=== PATIENT | male | born 1965 | race Caucasian/White ===

== ENCOUNTER 2020-07-10 21:27 | Emergency (ER) | payer MEDICAID, OTHER ==
[~2020-07-10] VITALS: Ht 172.7 cm; Wt 82.1 kg
--- NOTE | 2020-07-10 21:40 | NUR ---
TO ER BED 12 BIB EMS C/O AGITATION, ALTERED. BYSTANDER CALL 911 DUE TO PT LAYING ON THE FLOOR. PT DISHEVELED. RECEIVED PT AAOX2, NO ACUTE DISTRESS NOTED, RESP EVEN AND UNLABORED. NOTED PT WITH PIN POINT PUPILS. PLACE PT ON CARDIAC MONITORING, CONTINUOUS POX. SKIN WARM NONDIAPHORETIC. NO OBVIOUS TRAUMA NOTED. PENDING ER MD LIRIANO.
--- NOTE | 2020-07-10 21:42 | NUR ---
ER MD AT BEDSIDE TO EVAL PT. PT BECAME COMBATIVE AND STARTED SWINGING AT THE ER MD. PT VERBALLY ABUSIVE, UNCOOPERATIVE. ORDERS RECEIVED. FROM ER MD. WILL CARRY OUT ORDERS.
[2020-07-10 22:02] LABS: BASOPHILS % (AUTO) 0.6 % (0.0-2.0); EOSINOPHILS % (AUTO) 2.5 % (0.0-6.0); HEMATOCRIT 39 % (39-51); HEMOGLOBIN 13.2 g/dL (13.5-17.5); LYMPHOCYTES # (AUTO) 2.1 /CMM (0.8-4.8); MEAN CORPUSCULAR HGB CONC 34 g/dl (31.0-36.0); MEAN CORPUSCULAR VOLUME 91 fL (80-96); MONOCYTES # (AUTO) 0.6 /CMM (0.1-1.30); MONOCYTES % (AUTO) 8.2 % (2.0-12.0); NEUTROPHILS # (AUTO) 4.3 /CMM (1.8-8.9); NEUTROPHILS % (AUTO) 59.7 % (43.0-81.0); PLATELET COUNT (AUTO) 260 /CMM (150-450); RED BLOOD CELL COUNT(AUTO) 4.33 MIL/uL (4.5-6.0); WHITE BLOOD COUNT (AUTO) 7.1 K/uL (4.3-11.0)
[2020-07-10 22:15] LABS: CALCIUM, SERUM 8.7 mg/dL (8.5-10.1); CARBON DIOXIDE 31 mmol/L (21-32); CHLORIDE 106 mmol/L (98-107); CREATININE 0.9 mg/dL (0.6-1.3); GLUCOSE 89 mg/dL (74-106); POTASSIUM 3.9 mmol/L (3.5-5.1); SODIUM SERUM 144 mmol/L (136-145); UREA NITROGEN, BLOOD 21 mg/dL (7-18)
[2020-07-10 22:21] LABS: ALANINE AMINOTRANSFERASE 23 U/L (12-78); ALBUMIN 3.7 g/dL (3.4-5.0); ALKALINE PHOSPHATASE 78 U/L (46-116); ASPARTATE AMINOTRANSFERASE 21 U/L (15-37); BILIRUBIN,DIRECT 0.1 mg/dL (0.0-0.2); BILIRUBIN,TOTAL 0.3 mg/dL (0.2-1.0); TOTAL PROTEIN, SERUM 7.3 g/dL (6.4-8.2)
[2020-07-10 22:25] LABS: ALCOHOL, BLOOD < 3 mg/dL (0-0)
[2020-07-10] MEDS ORDERED: diphenhydrAMINE HCL 50 MG/ML VIAL ONE (22:43)
[2020-07-10] MEDS ORDERED: OLANZAPINE 10 MG VIAL IM ONE ×2 (22:43→23:00)
[2020-07-10] MEDS ORDERED: LORAZEPAM INJ 2 MG/ML VIAL ONE (22:45)
--- NOTE | 2020-07-10 22:46 | NUR ---
TACO PARRY AT [facility] TO MEDICATE PT. PT REMAINS UNCOOPERATIVE AND VERBALLY ABUSIVE. 1:1 SITTER PLACED FOR PT SAFETY.
[2020-07-10] MEDS ORDERED: HYDROCODONE/APAP 5/325MG TABLET PO ONE (23:00)
[2020-07-10] MEDS ORDERED: LORAZEPAM INJ 2 MG/ML VIAL IM ONE (23:00)
[2020-07-10] MEDS ORDERED: diphenhydrAMINE HCL 50 MG/ML VIAL IM ONE (23:00)
[2020-07-10] MEDS ORDERED: NALOXONE PREFILLED SYRINGE 2 MG/2 ML SYRINGE ONE (23:10)
[2020-07-10] MEDS ORDERED: NALOXONE HCL 0.4 MG/ML AMPUL IV ONE (23:30)
--- NOTE | 2020-07-11 00:36 | NUR ---
PT ASLEEP, NO ACUTE DISTRESS NOTED, RESP EVEN AND UNLABORED. PT REMAINS ON CARDIAC MONITORING, COTNINUOUS POX. CALL LIGHT WITHIN REACH. 1:1 SITTER REMAINS AT BEDSIDE FOR PT SAFETY.
[2020-07-11 02:56] LABS: BILIRUBIN,URINE NEGATIVE (NEGATIVE); COLOR,URINE YELLOW (YELLOW); LEUKOCYTE ESTERASE ,URINE NEGATIVE (NEGATIVE); NITRITE, URINE NEGATIVE (NEGATIVE); PH,URINE 6.5 (5.0-8.0); PROTEIN,URINE NEGATIVE (NEGATIVE); UGLUCOSE NEGATIVE (NEGATIVE); UROBILINOGEN,URINE 0.2 EU/dL (0.2)
--- NOTE | 2020-07-11 04:06 | NUR ---
PT REMAINS ASLEEP, NO ACUTE DISTRESS NTOED, RESP EVEN AND UNLABORED. CALL LIGHT WITHIN REACH. WILL CONTINUE TO MONITOR PT CLOSELY.
--- NOTE | 2020-07-11 05:39 | NUR ---
PT REMAINS ASLEEP, NO ACUTE DISTRESS NTOED, RESP EVEN AND UNLABORED. CALL LIGHT WITHIN REACH. WILL CONTINUE TO MONITOR PT CLOSELY.
--- NOTE | 2020-07-11 09:11 | NUR ---
PT SLEEPING, AROUSABLE. ON MONITOR W/ STABLE VITALS. WILL CONTINUE TO MONITOR.
--- NOTE | 2020-07-11 10:19 | NUR ---
Echocardiologist note: check services clerk requested for behavioral health and substance use. SW attempted to interview the patient but patient was lethargic. SW was unable to arouse the patient and will follow up at a later time.
--- NOTE | 2020-07-11 14:52 | NUR ---
CARI AROUSABLE, DEMETRI KATE AT BEDSIDE TALKING TO PATIENT.
--- NOTE | 2020-07-11 16:05 | NUR ---
PT AMBULATED ON STEAQDY GAIT WITH OUT TO THE BATHROOM AND ATE LUNCH.
--- NOTE | 2020-07-11 16:14 | NUR ---
"Social Service Consult: office services coordinator consult requested for substance use and homelessness. Patient is a 55-year-old, male. SW met with the patient at his hospital bed in the emergency department. Patient is alert and oriented x4, standing up next to this hospital bed. Patient engaged in conversation with this SW, however patient speech was at times slow, and he was observed to be closing his eyes from time to time. Per patients chart, patient was brought by EMS on 07/10/2020 for agitation and altered behavior. Patient is currently homeless and stated that he was previously staying at [facility] in [place]. Patient stated that he has no source of social support, but is independent with his ADLs. Patient receives [employer] [place] and stated that his SSI is pending. SW asked patient about his history of substance use and patient stated that he has a history of substance use but was unable to provide this SW with more details due to patients lethargy. Per toxicology report, patient is positive for benzodiazepine, opiates, and cannabis. SW assessed patients history of mental illness and patient stated that he has a history of AMARIS and PTSD. Patient is not taking any psychotropic medication at this time. Patient denies any current history of suicide or homicide. SW discussed discharge plan with the patient and patient stated he plans to return to his prior living arrangements. Transportation was discussed, and patient said he is able to take the bus and does not need additional transportation resources. SW discussed homeless resources with the patient and offered a homeless resources packet to the patient. Patient thanked this SW and accepted these resources. Patient signed homeless waiver and SW placed waiver in the patients chart. Year-round shelters: [facility] [address] [place] [address] ; [facility] [address] [place] [address]; [facility] [address] [facility] [address] SPA 4 | [facility] Provider: [facility] to Serve Address: [address], [address] # of Beds: 48 Population Served: [facility] Provider: First to Serve Address: [address] [facility] # of Beds: 73 Population Served: [facility] SPA 6 | [facility] Provider: [facility] Last Address: [address] [facility] [facility], [address] # of Beds: 63 Population Served: [facility] 3 | [facility] Provider: [facility] [place] Address: [address] [facility], [address] # of Beds: 75 Population Served: [facility] SPA 8 | [facility] Provider: [facility] [place] Address: [address] [facility], [address] # of Beds: 80 Population Served: [facility] | [facility] Provider: [facility] [place] Address: [address] [place] [address], [address] # of Beds: 85 Population Served: [facility] 2 | [facility] Provider: Kira [facility] Address: Confidential (please call for location) # of Beds: 52 Population Served: [facility] 4 | [facility] Provider: [facility] Address: [address] [facility] [place], [address] # of Beds: 49 Population Served: [facility] Provider: First To Serve Address: [address] [place] [address], [address] # of Beds: 27 Population Served: [facility] Hygiene: [facility]: [address] [address] [place] [place] ; [facility] [address] [facility] ; [facility] [address] . Food Resources: [facility]- [address] [facility]; Meet Each Need with [facility]ign[facility] ([facility]) [address] [facility]; [facility] [address] [facility]; [facility] [address] Em[address] Katharine Bills. Mental Health resources provided: [facility] [address] [place], [place] [address] ; [facility] [address] [facility] [address], [place] [address] ; [facility] [address] [facility] [place], [place] [id number] ; [facility] [address] [place], [place] [address] Healthcare Clinics: [facility] [address] [facility], [address] [place]. [place] ; [facility] [address] [facility] [address] [place] [address]; [facility] [address] [facility]. [place] [id number] [phone] Counseling--Outpatient [facility] [address] [facility], [address] [place], [place] [id number] (Specializes in in-depth psychotherapy for emotional distress: anxiety, depression, interpersonal conflicts, life transitions, childhood abuse) PSYCHIATRIC OUTPATIENT SERVICES [facility] Partial Hospitalization and Intensive Outpatient Program (Managed Care and [place] Only) [address] [facility]. [facility] [id number] [facility] Partial Hospitalization and Outpatient Program [address] [facility]. [address] [place], [place] [id number] [facility] Partial Hospitalization and Outpatient Program [address] [facility] [place], [place] [id number] [facility] [address] [facility]. [address] [place], [place] [address] [facility] Partial Hospitalization and Outpatient Program [address] [place], [place] [phone] PLAN: Patient will return to prior living arrangements at the time of discharge. No further SS interventions needed at this time however, SW will follow-up as needed."
--- NOTE | 2020-07-11 16:32 | NUR ---
Patient discharged to home in stable condition. Written and verbal after care instructions given. Patient verbalizes understanding of instruction. Pt ambulatory with a steady gait IV removed. Catheter intact and site benign. Pressure and 4x4 applied to site. No bleeding noted. homeless waiver signed by the patient
[2020-07-11 16:52] VITALS: BP 117/72
[2020-07-12] MEDS ORDERED: FLUO40CA8 PO (08:29)
[2020-07-12] MEDS ORDERED: AMPH15TA2 PO (08:29)
[2020-07-12] MEDS ORDERED: MORP100T4 PO (08:29)
[2020-07-12] MEDS ORDERED: OXYC30TA2 PO (08:29)
[2020-07-12] MEDS ORDERED: CLON2TAB11 PO (08:29)
[2020-07-12] MEDS ORDERED: LEVO500T90 PO (08:56)
== END 2020-07-11 16:53 | disposition home or self-care (01) ==
LOC: ER 21:29
DX: F19.10 Other psychoactive substance abuse, uncomplicated (principal); Z98.890 Other specified postprocedural states
CPT/HCPCS: 36415; 80048; 80076; 80299; 80307; 80320; 81003; 85025; 93971; 96372 ×2; 96374; 99285; J1200; J2060; J2310; J3490; G0480

== ENCOUNTER 2020-07-11 20:38 | Inpatient (IN) | payer MEDICAID ==
[~2020-07-11] VITALS: Ht 172.7 cm; Wt 66.2 kg
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
--- NOTE | 2020-07-11 21:04 | NUR ---
PT TO CT VIA MAITE
--- NOTE | 2020-07-11 21:17 | NUR ---
back from ct
[2020-07-11] MEDS ORDERED: PIPERACILLIN /TAZOBACTAM 3.375 G in IV D5W 50 ML IV ONE (22:00)
[2020-07-11] MEDS ORDERED: NALOXONE HCL 0.4 MG/ML AMPUL IV ONE (22:00)
[2020-07-11] MEDS ORDERED: VANCOMYCIN 1 GM in IV D5W 250 ML IV ONE (22:00)
[2020-07-11 22:01] LABS: BASOPHILS % (AUTO) 0.3 % (0.0-2.0); EOSINOPHILS % (AUTO) 1.4 % (0.0-6.0); HEMATOCRIT 31 % (39-51); HEMOGLOBIN 9.6 g/dL (13.5-17.5); LYMPHOCYTES # (AUTO) 1.3 /CMM (0.8-4.8); LYMPHOCYTES % (AUTO) 7.5 % (20.0-44.0); MEAN CORPUSCULAR HGB CONC 31 g/dl (31.0-36.0); MEAN CORPUSCULAR VOLUME 75 fL (80-96); MONOCYTES # (AUTO) 1.1 /CMM (0.1-1.30); MONOCYTES % (AUTO) 6.6 % (2.0-12.0); NEUTROPHILS # (AUTO) 14.5 /CMM (1.8-8.9); NEUTROPHILS % (AUTO) 84.2 % (43.0-81.0); PLATELET COUNT (AUTO) 343 /CMM (150-450); RED BLOOD CELL COUNT(AUTO) 4.14 MIL/uL (4.5-6.0); WHITE BLOOD COUNT (AUTO) 17.2 K/uL (4.3-11.0)
[2020-07-11] MEDS ORDERED: VANCOMYCIN 1 GM VIAL ONE (22:07)
[2020-07-11] MEDS ORDERED: PIPERACILLIN /TAZOBACTAM 3.375 G VIAL IV ONE (22:07)
[2020-07-11 22:30] LABS: BASOPHILS # (AUTO) 0.1 /CMM (0.0-0.2); BASOPHILS % (AUTO) 0.4 % (0.0-2.0); EOSINOPHILS % (AUTO) 0.5 % (0.0-6.0); HEMATOCRIT 42 % (39-51); HEMOGLOBIN 13.8 g/dL (13.5-17.5); LYMPHOCYTES # (AUTO) 1.2 /CMM (0.8-4.8); MEAN CORPUSCULAR HGB CONC 33 g/dl (31.0-36.0); MEAN CORPUSCULAR VOLUME 91 fL (80-96); MONOCYTES # (AUTO) 0.9 /CMM (0.1-1.30); MONOCYTES % (AUTO) 6.7 % (2.0-12.0); NEUTROPHILS # (AUTO) 11.3 /CMM (1.8-8.9); NEUTROPHILS % (AUTO) 83.4 % (43.0-81.0); PLATELET COUNT (AUTO) 273 /CMM (150-450); WHITE BLOOD COUNT (AUTO) 13.6 K/uL (4.3-11.0)
[2020-07-11] MEDS ORDERED: IV NS 0.9% 1,000 ML BAG IV ONE (22:30)
[2020-07-11 22:37] LABS: CREATININE 0.8 mg/dL (0.6-1.3); POTASSIUM 3.7 mmol/L (3.5-5.1)
[2020-07-11 22:41] LABS: CALCIUM, SERUM 8.4 mg/dL (8.5-10.1)
--- NOTE | 2020-07-12 00:35 | NUR ---
RESTING COMFORTABLY. VSS.
--- NOTE | 2020-07-12 02:57 | NUR ---
PT TRANSFERED. REPORT GIVEN TO RN FOR EM.
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
[2020-07-12] MEDS ORDERED: HYDROCODONE/APAP 5/325MG TABLET PO PRN (03:30)
[2020-07-12] MEDS ORDERED: ACETAMINOPHEN 650 MG/20.3 ML UDC NG PRN (03:30)
[2020-07-12] MEDS ORDERED: ONDANSETRON HCL/PF 4 MG/2 ML VIAL IV PRN (03:30)
[2020-07-12 04:00] VITALS: BP 94/57
[2020-07-12] MEDS ORDERED: PIPERACILLIN /TAZOBACTAM 3.375 G in IV D5W 50 ML IV SCH (05:00)
[2020-07-12] MEDS ORDERED: ZOSYN IVPB 3.375 G in IV D5W 50ml IV SCH (05:00)
[2020-07-12] MEDS ORDERED: PIPERACILLIN /TAZOBACTAM 3.375 G VIAL IV ONE (05:32)
[2020-07-12 06:09] LABS: BASOPHILS % (AUTO) 0.3 % (0.0-2.0); EOSINOPHILS % (AUTO) 2.1 % (0.0-6.0); HEMATOCRIT 34 % (39-51); HEMOGLOBIN 11.7 g/dL (13.5-17.5); LYMPHOCYTES # (AUTO) 1.7 /CMM (0.8-4.8); LYMPHOCYTES % (AUTO) 18.7 % (20.0-44.0); MEAN CORPUSCULAR HGB CONC 34 g/dl (31.0-36.0); MEAN CORPUSCULAR VOLUME 92 fL (80-96); MONOCYTES # (AUTO) 0.6 /CMM (0.1-1.30); MONOCYTES % (AUTO) 6.7 % (2.0-12.0); NEUTROPHILS # (AUTO) 6.7 /CMM (1.8-8.9); NEUTROPHILS % (AUTO) 72.2 % (43.0-81.0); PLATELET COUNT (AUTO) 237 /CMM (150-450); RED BLOOD CELL COUNT(AUTO) 3.73 MIL/uL (4.5-6.0); WHITE BLOOD COUNT (AUTO) 9.2 K/uL (4.3-11.0)
[2020-07-12 06:21] LABS: CALCIUM, SERUM 7.6 mg/dL (8.5-10.1); CREATININE 0.6 mg/dL (0.6-1.3); POTASSIUM 3.3 mmol/L (3.5-5.1)
--- NOTE | 2020-07-12 07:14 | NUR ---
RN NOTE PATIENT IS RESTING IN BED. ALERT AND ORIENTED X4. ON ROOM AIR, O2 SAT 100%. NO SOB OR ANY RESPIRATORY DISTRESS. KEPT CLEAN AND DRY. WITH IV ON RIGHT AC #20 PATENT AND FLUSHED ASEPTICALLY. SAFETY MEASURES IMPLEMENTED. BED LOCKED AND IN LOWEST POSITION. SIDE RAILS UP X2. CALL LIGHT WITHIN REACH. WILL ENDORSE TO AM SHIFT.
--- NOTE | 2020-07-12 07:43 | NUR ---
Patient complains of dizziness. Says history of diabetes. Denies hypertension, chest pain, blurry vision. Says it feels like the room is spinning. Denies history of having a CT or any other sequalae. Says has had two or three concussions in the last six months. Pupils are three plus equal reactive to light accommodation. Has alertness and orientation x4. Denies history of previous dizziness. Suggestion to possibly eat breakfast to see if this may be related to hunger. Costa Hartman RN
[2020-07-12] MEDS ORDERED: FLUO40CA8 PO (08:29)
[2020-07-12] MEDS ORDERED: OXYC30TA2 PO (08:29)
[2020-07-12] MEDS ORDERED: MORP100T4 PO (08:29)
[2020-07-12] MEDS ORDERED: CLON2TAB11 PO (08:29)
[2020-07-12] MEDS ORDERED: AMPH15TA2 PO (08:29)
[2020-07-12] MEDS ORDERED: POTASSIUM CHLORIDE 20 MEQ TAB.PRT.SR PO ONE (08:30)
--- NOTE | 2020-07-12 08:48 | NUR ---
Patient says dizziness is still present. He notes numbness in bilateral lower legs, right side headache pain as well as right hip and back pain. Costa Hartman RN
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
[2020-07-12] MEDS ORDERED: LEVO500T90 PO (08:56)
[2020-07-12] MEDS ORDERED: PIPERACILLIN /TAZOBACTAM 3.375 G in IV D5W 100 ML IV SCH (10:00)
--- NOTE | 2020-07-12 10:16 | NUR ---
Patient discharge to home with all belongings and a copy of exit care instruction, prescription (levaquin), and follow up care. Patient verbalizes understanding of prescription and follow up. Says he will go by pharmacy prior to going to longterm. Costa Hartman RN
--- NOTE | 2020-07-12 12:57 | NUR ---
SS consult requested for homelessness & substance use. SS consult completed by other SW in ED on 07/11/2020. See other account for details. Patient has already been discharged at this time.
== END 2020-07-12 10:13 | disposition home or self-care (01) | DRG 139 ==
LOC: ER 20:39 → TELE1 07-12 02:07 → MEDSG1 07-12 03:36
PROVIDERS: ADMIT Internal Medicine; ATTEND Internal Medicine
DX: J15.9 Unspecified bacterial pneumonia (principal); F19.10 Other psychoactive substance abuse, uncomplicated; G89.29 Other chronic pain; W18.30XA Fall on same level, unspecified, initial encounter; Y93.89 Activity, other specified; Y92.238 Other place in hospital as the place of occurrence of the external cause; J98.11 Atelectasis; Z59.0 Homelessness; Z79.891 Long term (current) use of opiate analgesic; Z20.822 Contact with and (suspected) exposure to COVID-19
CPT/HCPCS: 36410; 36415; 70450-TC; 71250-TC; 72125-TC; 80048-TC; 82962-TC; 83880; 84484-TC; 85025-TC; 87040-TC; 87081-TC; C9803; G0378; J2543; J3370; J7030; J7040; J7050; J7060

== ENCOUNTER 2021-09-03 00:21 | Emergency (ER) | payer MEDICAID, OTHER ==
[~2021-09-03] VITALS: Ht 172.7 cm; Wt 72.6 kg
[~2021-09-03 00:21] MED LIST: AMPH15TA2 PO; CLON2TAB11 PO; FLUO40CA8 PO; LEVO500T90 PO; MORP100T4 PO; OXYC30TA2 PO
--- NOTE | 2021-09-03 00:24 | NUR ---
Jose L roberson in [facility] - 09/03/21 at 0127 by KATHLEEN VIVIAN scott [phone]
[2021-09-03] MEDS ORDERED: oxyCODONE/APAP (5/325 MG) 1 UDTAB TABLET PO ONE (01:30)
[2021-09-03] MEDS ORDERED: OXYC-133 PO (01:32)
[2021-09-03 01:33] VITALS: BP 98/56
[2021-09-03] MEDS ORDERED: oxyCODONE/APAP (5/325 MG) 1 UDTAB TABLET ONE (01:33)
--- NOTE | 2021-09-03 01:33 | NUR ---
Patient discharged to home in stable condition. Written and verbal after care instructions given. Patient verbalizes understanding of instruction.
== END 2021-09-03 01:35 | disposition home or self-care (01) ==
LOC: ER 00:35
DX: G89.29 Other chronic pain (principal); M25.551 Pain in right hip; Z79.899 Other long term (current) drug therapy

== ENCOUNTER 2023-08-22 14:26 | Emergency (ER) | payer MEDICAID, OTHER ==
[~2023-08-22] VITALS: Ht 165.1 cm; Wt 72.6 kg
[~2023-08-22 14:26] MED LIST changes: +OXYC-133 PO
[2023-08-22] MEDS ORDERED: KETOROLAC TROMETHAMINE 15 MG/ML VIAL ONE (15:35)
[2023-08-22] MEDS ORDERED: SERT100T PO (15:37)
[2023-08-22] MEDS ORDERED: ZOLP10TA2 PO (15:37)
[2023-08-22] MEDS: KETOROLAC TROMETHAMINE 15 MG/ML VIAL IM ONE (15:40)
[2023-08-22] MEDS ORDERED: IBUP-1957 PO (16:37)
[2023-08-22 17:12] LABS: BASOPHILS # (AUTO) 0.1 K/uL (0.0-0.2); BASOPHILS % (AUTO) 0.6 % (0.0-2.0); EOSINOPHILS # (AUTO) 0.2 K/uL (0.0-0.7); HEMATOCRIT 41 % (39-51); HEMOGLOBIN 13.5 g/dL (13.5-17.5); LYMPHOCYTES # (AUTO) 2.7 K/uL (0.8-4.8); LYMPHOCYTES % (AUTO) 27.4 % (20.0-44.0); MEAN CORPUSCULAR HEMOGLOBIN 30 PG (26.0-33.0); MEAN CORPUSCULAR HGB CONC 33 g/dl (31.0-36.0); MEAN CORPUSCULAR VOLUME 90 fL (80-96); MONOCYTES # (AUTO) 0.6 K/uL (0.1-1.30); MONOCYTES % (AUTO) 6.4 % (2.0-12.0); NEUTROPHILS # (AUTO) 6.4 K/uL (1.8-8.9); NEUTROPHILS % (AUTO) 63.6 % (43.0-81.0); PLATELET COUNT (AUTO) 335 K/uL (150-450); RED BLOOD CELL COUNT(AUTO) 4.54 MIL/uL (4.5-6.0); RED CELL DISTRIBUTION WIDTH 13.5 % (11.5-15.0)
[2023-08-22 17:19] LABS: CALCIUM, SERUM 9.2 mg/dL (8.5-10.1); CARBON DIOXIDE 33 mmol/L (21-32); CHLORIDE 102 mmol/L (98-107); CREATININE 0.9 mg/dL (0.6-1.3); GLUCOSE 106 mg/dL (74-106); POTASSIUM 3.9 mmol/L (3.5-5.1); SODIUM SERUM 138 mmol/L (136-145); UREA NITROGEN, BLOOD 9 mg/dL (7-18)
[2023-08-22 17:25] LABS: ALANINE AMINOTRANSFERASE 25 U/L (12-78); ALBUMIN 4.2 g/dL (3.4-5.0); ALCOHOL, BLOOD < 3 mg/dL (0-10); ALKALINE PHOSPHATASE 68 U/L (46-116); ASPARTATE AMINOTRANSFERASE 19 U/L (15-37); BILIRUBIN,DIRECT 0.1 mg/dL (0.0-0.2); BILIRUBIN,TOTAL 0.4 mg/dL (0.2-1.0); TOTAL PROTEIN, SERUM 7.9 g/dL (6.4-8.2)
[2023-08-22 17:26] LABS: ACETAMINOPHEN <10 ug/ml (10-30); SALICYLATE 1.4 mg/dL (2.8-20.0)
[2023-08-22 18:41] LABS: AMPHETAMINE, URINE NEGATIVE (NEGATIVE); BARBITURATE, URINE NEGATIVE (NEGATIVE); BENZODIAZEPINE, URINE NEGATIVE (NEGATIVE); COCCAINE, URINE NEGATIVE (NEGATIVE); OPIATE, URINE NEGATIVE (NEGATIVE); PHENCYCLIDINE SCREEN,URINE NEGATIVE (NEGATIVE)
[2023-08-22 18:45] LABS: CANNABINOID, URINE POSITIVE (NEGATIVE)
[2023-08-22 19:07] LABS: APPEARANCE,URINE CLEAR (CLEAR); BILIRUBIN,URINE NEGATIVE (NEGATIVE); BLOOD, URINE NEGATIVE Ery/uL (NEGATIVE); COLOR,URINE YELLOW (YELLOW); KETONES,URINE NEGATIVE (NEGATIVE); LEUKOCYTE ESTERASE ,URINE NEGATIVE (NEGATIVE); NITRITE, URINE NEGATIVE (NEGATIVE); PROTEIN,URINE NEGATIVE (NEGATIVE); UGLUCOSE NEGATIVE (NEGATIVE); UROBILINOGEN,URINE 0.2 EU/dL (0.2)
[2023-08-22] MEDS ORDERED: LORAZEPAM 1 MG TABLET ONE ×2 (19:25→22:01)
[2023-08-22] MEDS: LORAZEPAM 1 MG TABLET PO ONE ×2 (19:28→22:04)
[2023-08-22] MEDS ORDERED: ACETAMINOPHEN ES 500 MG TABLET ONE (22:02)
[2023-08-22] MEDS: ACETAMINOPHEN ES 500 MG TABLET PO ONE (22:04)
[2023-08-23 00:08] VITALS: BP 112/68; TEMP 98.2; O2SAT 97
== END 2023-08-23 00:08 | disposition home or self-care (01) ==
LOC: ER 14:40
DX: R45.851 Suicidal ideations (principal); M54.41 Lumbago with sciatica, right side; F19.10 Other psychoactive substance abuse, uncomplicated; Z76.0 Encounter for issue of repeat prescription; Z76.5 Malingerer [conscious simulation]; Z20.822 Contact with and (suspected) exposure to COVID-19
CPT/HCPCS: 99284; 96372; 85025; 80048; 80076; 81003; 36415; 87426; 80143; 80320; 80307; J7030; J1885; G0480

== ENCOUNTER 2024-02-15 02:14 | Emergency (ER) | payer MEDICAID, OTHER ==
[~2024-02-15] VITALS: Ht 172.7 cm; Wt 74.8 kg
[~2024-02-15 02:14] MED LIST changes: -AMPH15TA2 PO; -FLUO40CA8 PO; +IBUP-1957 PO; -LEVO500T90 PO; -MORP100T4 PO; -OXYC-133 PO; -OXYC30TA2 PO; +SERT100T PO; +ZOLP10TA2 PO
[2024-02-15 02:52] VITALS: TEMP 97.9
[2024-02-15] MEDS ORDERED: KETOROLAC TROMETHAMINE INJ 60 MG/2 ML VIAL IM ONE (02:57)
[2024-02-15] MEDS: KETOROLAC TROMETHAMINE INJ 30 MG/ML VIAL IM ONE (03:00)
[2024-02-15 03:45] LABS: BASOPHILS # (AUTO) 0.1 K/uL (0.0-0.2); BASOPHILS % (AUTO) 0.5 % (0.0-2.0); EOSINOPHILS # (AUTO) 0.2 K/uL (0.0-0.7); HEMATOCRIT 37 % (39-51); HEMOGLOBIN 12.5 g/dL (13.5-17.5); LYMPHOCYTES # (AUTO) 1.6 K/uL (0.8-4.8); LYMPHOCYTES % (AUTO) 13.1 % (20.0-44.0); MEAN CORPUSCULAR HEMOGLOBIN 31 PG (26.0-33.0); MEAN CORPUSCULAR HGB CONC 34 g/dl (31.0-36.0); MEAN CORPUSCULAR VOLUME 91 fL (80-96); MONOCYTES # (AUTO) 1.2 K/uL (0.1-1.30); MONOCYTES % (AUTO) 9.8 % (2.0-12.0); NEUTROPHILS # (AUTO) 8.9 K/uL (1.8-8.9); NEUTROPHILS % (AUTO) 74.6 % (43.0-81.0); PLATELET COUNT (AUTO) 227 K/uL (150-450); RED BLOOD CELL COUNT(AUTO) 4.04 MIL/uL (4.5-6.0); RED CELL DISTRIBUTION WIDTH 14.2 % (11.5-15.0); WHITE BLOOD COUNT (AUTO) 11.9 K/uL (4.3-11.0)
[2024-02-15 03:57] LABS: ALANINE AMINOTRANSFERASE 32 U/L (12-78); ALBUMIN 3.6 g/dL (3.4-5.0); ALCOHOL, BLOOD < 3 mg/dL (0-10); ALKALINE PHOSPHATASE 67 U/L (46-116); ASPARTATE AMINOTRANSFERASE 28 U/L (15-37); BILIRUBIN,DIRECT 0.1 mg/dL (0.0-0.2); BILIRUBIN,TOTAL 0.2 mg/dL (0.2-1.0); CARBON DIOXIDE 29 mmol/L (21-32); CHLORIDE 102 mmol/L (98-107); CREATININE 0.8 mg/dL (0.6-1.3); GLUCOSE 114 mg/dL (74-106); POTASSIUM 3.3 mmol/L (3.5-5.1); SODIUM SERUM 139 mmol/L (136-145); TOTAL PROTEIN, SERUM 6.8 g/dL (6.4-8.2); UREA NITROGEN, BLOOD 11 mg/dL (7-18)
[2024-02-15 03:59] LABS: SALICYLATE 1.3 mg/dL (2.8-20.0)
[2024-02-15 04:00] LABS: ACETAMINOPHEN <10 ug/ml (10-30)
[2024-02-15 04:06] LABS: CALCIUM, SERUM 8.7 mg/dL (8.5-10.1)
[2024-02-15 04:13] VITALS: BP 119/77; O2SAT 99
[2024-02-15 05:00] LABS: APPEARANCE,URINE CLEAR (CLEAR); BILIRUBIN,URINE NEGATIVE (NEGATIVE); BLOOD, URINE 1+ Ery/uL (NEGATIVE); COLOR,URINE YELLOW (YELLOW); KETONES,URINE NEGATIVE (NEGATIVE); LEUKOCYTE ESTERASE ,URINE NEGATIVE (NEGATIVE); NITRITE, URINE NEGATIVE (NEGATIVE); PH,URINE 6.5 (5.0-8.0); PROTEIN,URINE NEGATIVE (NEGATIVE); UGLUCOSE NEGATIVE (NEGATIVE); UROBILINOGEN,URINE 0.2 EU/dL (0.2)
[2024-02-15 05:20] LABS: AMPHETAMINE, URINE POSITIVE (NEGATIVE); BARBITURATE, URINE NEGATIVE (NEGATIVE); BENZODIAZEPINE, URINE NEGATIVE (NEGATIVE); COCCAINE, URINE NEGATIVE (NEGATIVE); OPIATE, URINE NEGATIVE (NEGATIVE); PHENCYCLIDINE SCREEN,URINE NEGATIVE (NEGATIVE)
[2024-02-15 05:42] LABS: CANNABINOID, URINE POSITIVE (NEGATIVE)
[2024-02-15 05:53] LABS: WBC,URINE 0-2 /HPF (0-3)
[2024-02-15 05:54] LABS: ADD URINE CULTURE NO; BACTERIA,URINE Rare /HPF (None Seen); SQUAMOUS EPITHELIAL CELL,UR 0-2 /HPF (None Seen)
[2024-02-15] MEDS ORDERED: ACETAMINOPHEN ES 500 MG TABLET ONE (08:35)
[2024-02-15] MEDS ORDERED: CYCLOBENZAPRINE 10 MG TABLET ONE (08:35)
[2024-02-15] MEDS: ACETAMINOPHEN ES 500 MG TABLET PO ONE (08:36)
[2024-02-15] MEDS: CYCLOBENZAPRINE 10 MG TABLET PO ONE (08:37)
== END 2024-02-15 09:55 ==
LOC: ER 02:18
DX: R45.851 Suicidal ideations (principal); G89.29 Other chronic pain; M54.9 Dorsalgia, unspecified; F19.10 Other psychoactive substance abuse, uncomplicated; Z76.5 Malingerer [conscious simulation]; Z79.1 Long term (current) use of non-steroidal anti-inflammatories (NSAID); Z79.899 Other long term (current) drug therapy; Z20.822 Contact with and (suspected) exposure to COVID-19
CPT/HCPCS: 99285; 96372; 85025; 80048; 80076; 81001; 36415; 87426; 80143; 80320; 80307; J1885; G0480

== ENCOUNTER 2025-01-21 16:36 | Emergency (ER) | payer OTHER ==
[~2025-01-21] VITALS: Ht 170.2 cm; Wt 80.3 kg
[2025-01-21 17:38] LABS: PLATELET COUNT (AUTO) 237 K/uL (150-450); RED BLOOD CELL COUNT(AUTO) 3.98 MIL/uL (4.5-6.0); RED CELL DISTRIBUTION WIDTH 13.6 % (11.5-15.0); WHITE BLOOD COUNT (AUTO) 6.4 K/uL (4.3-11.0)
[2025-01-21 17:46] LABS: CALCIUM, SERUM 8.5 mg/dL (8.5-10.1); CREATININE 0.9 mg/dL (0.6-1.3); SODIUM SERUM 142 mmol/L (136-145); UREA NITROGEN, BLOOD 13 mg/dL (7-18)
[2025-01-21] MEDS ORDERED: CYCLOBENZAPRINE 10 MG TABLET ONE (17:48)
[2025-01-21] MEDS ORDERED: KETOROLAC TROMETHAMINE 15 MG/ML VIAL ONE (17:48)
[2025-01-21] MEDS ORDERED: LIDOCAINE 5% (PATCH) 1 EA PATCH TP ONE (17:48)
[2025-01-21 17:54] LABS: ASPARTATE AMINOTRANSFERASE 27 U/L (15-37); TOTAL PROTEIN, SERUM 7.0 g/dL (6.4-8.2)
[2025-01-21] MEDS: LIDOCAINE 5% (PATCH) 1 EA PATCH TP STA (17:57)
[2025-01-21] MEDS: KETOROLAC TROMETHAMINE 15 MG/ML VIAL IM ONE (17:57)
[2025-01-21] MEDS: CYCLOBENZAPRINE 10 MG TABLET PO ONE (17:57)
[2025-01-21 21:56] LABS: APPEARANCE,URINE CLEAR (CLEAR); BLOOD, URINE NEGATIVE Ery/uL (NEGATIVE); LEUKOCYTE ESTERASE ,URINE NEGATIVE (NEGATIVE); NITRITE, URINE NEGATIVE (NEGATIVE); UGLUCOSE NEGATIVE (NEGATIVE)
[2025-01-21 22:07] LABS: AMPHETAMINE, URINE POSITIVE (NEGATIVE); BARBITURATE, URINE NEGATIVE (NEGATIVE); BENZODIAZEPINE, URINE POSITIVE (NEGATIVE); CANNABINOID, URINE POSITIVE (NEGATIVE); COCCAINE, URINE NEGATIVE (NEGATIVE); OPIATE, URINE POSITIVE (NEGATIVE)
[2025-01-22] VITALS: BP 109/6; TEMP 98.1; O2SAT 97
== END 2025-01-22 00:58 ==
LOC: ER 16:39
DX: R45.851 Suicidal ideations (principal); F11.10 Opioid abuse, uncomplicated; F32.A Depression, unspecified; G89.29 Other chronic pain; Z59.00 Homelessness unspecified; Z79.1 Long term (current) use of non-steroidal anti-inflammatories (NSAID); Z79.899 Other long term (current) drug therapy
CPT/HCPCS: 99285; 96372; 85025; 80048; 80076; 81003; 36415; 80143; 80320; 80307; J1885; G0480